=== PATIENT | male | born 1955 | race Caucasian/White ===

== ENCOUNTER → 2017-09-23 | Outpatient (CLI) | payer OTHER | END | disposition home or self-care (01) | LOC: KCIC MRI 07:39 | DX: S83.282A Other tear of lateral meniscus, current injury, left knee, initial encounter (principal); M17.12 Unilateral primary osteoarthritis, left knee; M71.22 Synovial cyst of popliteal space [Baker], left knee; M94.262 Chondromalacia, left knee; M25.462 Effusion, left knee; X58.XXXA Exposure to other specified factors, initial encounter; Y93.89 Activity, other specified; Y92.89 Other specified places as the place of occurrence of the external cause; Y99.8 Other external cause status | CPT/HCPCS: 73721 ==

== ENCOUNTER → 2020-11-28 | Outpatient (CLI) | payer MEDICARE, OTHER ==
--- NOTE | 2020-11-28 20:39 | KCIC ---
EXAMINATION: US RENAL BILAT INDICATION: 65 years, Male, chronic kidney disease stage IIIB. COMPARISON: 11/16/2015 TECHNIQUE: Grayscale and limited color Doppler evaluation of the kidneys and bladder was performed. FINDINGS: RIGHT KIDNEY: MEASURES: 8.8 x 5.2 x 5.5 cm. MORPHOLOGY/PARENCHYMA: Normal corticomedullary differentiation. No shadowing calculus or discrete mas ses. COLLECTING SYSTEM: No hydronephrosis. LEFT KIDNEY: MEASURES: 10.4 x 4.7 x 5.3 cm. MORPHOLOGY/PARENCHYMA: Normal corticomedullary differentiation with no shadowing calculus or discrete masses. COLLECTING SYSTEM: No hydronephrosis. URINARY BLADDER: Unremarkable. Bilateral ureteral jets are seen. Post void bladder residual volume is 37 ml. IMPRESSION: Unremarkable renal ultrasound. Electronically signed by: Divya Glaser MD (11/28/2020 8:36 PM) [id number]
== END ==
LOC: KCIC US 14:18
PROVIDERS: ATTEND Family Medicine
DX: N18.32 Chronic kidney disease, stage 3b (principal)
CPT/HCPCS: 76770

== ENCOUNTER → 2021-01-03 | Outpatient (CLI) | payer MEDICARE, OTHER ==
--- NOTE | 2021-01-03 09:23 | KCIC ---
EXAM: Serrano scale and color Doppler renal artery sonogram. HISTORY: Hypertension. TECHNIQUE: Serrano scale and color Doppler sonographic imaging of the kidneys and renal arteries with sp ectral analysis was performed. COMPARISON: 11/28/2020. FINDINGS: The kidneys are normal in size. No solid or cystic renal lesion is seen. There is no hydron ephrosis. There are normal peak systolic velocities within the renal arteries and normal renal artery to aorta velocity ratios. The bladder is not assessed. IMPRESSION: 1. Doppler findings consistent with less than 60 percent stenosis involving the renal arteries. 2. Unremarkable grayscale evaluation of the kidneys. Electronically signed by: Terra Quintana MD (01/03/2021 9:21 AM) [id number]
== END ==
LOC: KCIC US 08:04
PROVIDERS: ATTEND Nurse Practitioner Family
DX: I15.0 Renovascular hypertension (principal)
CPT/HCPCS: 93975